=== PATIENT | female | born 1970 | race Asian ===

== ENCOUNTER 2018-07-05 18:20 | Emergency (ER) | payer BC ==
[~2018-07-05] VITALS: Ht 152.4 cm; Wt 73.9 kg
[2018-07-05 18:35] VITALS: TEMP 97.2
[2018-07-05 19:33] LABS: PLATELET COUNT 456 K/uL (152-353)
[2018-07-05 19:38] LABS: POTASSIUM 3.6 mmol/L (3.6-5.2)
[2018-07-05 22:50] VITALS: BP 154/62
== END 2018-07-05 22:50 | disposition home or self-care (01) ==
LOC: ED 18:20
PROVIDERS: Internal Medicine
DX: R10.31 Right lower quadrant pain (principal)
CPT/HCPCS: 36415; 80053; 81000; 85027; 96374; 99284; J1885; Q9963

== ENCOUNTER 2020-01-20 21:06 | Emergency (ER) | payer BC ==
[~2020-01-20] VITALS: Ht 152.4 cm; Wt 72.6 kg
[2020-01-21 00:58] VITALS: BP 112/71; TEMP 98.7
== END 2020-01-21 00:58 | disposition home or self-care (01) ==
LOC: ED 21:06
PROC: 0HQHXZZ Repair Right Upper Leg Skin, External Approach (ICD-10-PCS; principal; 2020-01-20)
DX: S71.111A Laceration without foreign body, right thigh, initial encounter (principal); S20.419A Abrasion of unspecified back wall of thorax, initial encounter; S30.810A Abrasion of lower back and pelvis, initial encounter; S60.512A Abrasion of left hand, initial encounter; S60.511A Abrasion of right hand, initial encounter; S90.812A Abrasion, left foot, initial encounter; S90.811A Abrasion, right foot, initial encounter; S80.211A Abrasion, right knee, initial encounter; T14.8XXA Other injury of unspecified body region, initial encounter; R07.89 Other chest pain; V87.8XXA Person injured in other specified noncollision transport accidents involving motor vehicle (traffic), initial encounter; Y92.410 Unspecified street and highway as the place of occurrence of the external cause
CPT/HCPCS: 36415; 90471; 90715; 93005; 96374; 99284; J1885